=== PATIENT | male | born 1980 | race Caucasian/White ===

== ENCOUNTER 2016-06-24 20:45 | Emergency (ER) ==
[2016-06-24] MEDS ORDERED: AMOXIL PO ONE (22:19)
[2016-06-24] MEDS ORDERED: NORCO-10 PO ONE (22:20)
--- NOTE | 2016-06-24 22:21 | PROVIDER DOCUMENTATION ---
HPI-EENT General - General Stated Complaint: RT EARACHE Time Seen by Provider: 06/24/16 22:11 Source: family Allergies/Adverse Reactions: Patient Allergies Allergy/AdvReac Type Severity Reaction Status Date / Time No Known Allergies Allergy Verified 06/11/15 22:45 Home Medications: Home Medication List Medication Instructions Recorded Confirmed Last Taken Type Cyclobenzaprine [Flexeril] 10 mg PO TID #20 tablet 06/11/15 Unknown Rx Naproxen 500 mg PO BID PRN #30 tablet 06/11/15 Unknown Rx Acetaminophen with Codeine 1 each PO Q4H PRN PRN #10 tablet 06/24/16 Unknown Rx [Tylenol with Codeine #3] Amoxicillin [Amoxil] 500 mg PO BID #14 capsule 06/24/16 Unknown Rx - History of Present Illness-EENT General Nature of Presenting Problem: 36 y/o WM c/o right ear pain and right dental pain starting 3 days ago, cannot sleep due to pain. Denies fevers, chills or night sweats. States he thinks the wisdom tooth in the back that is coming in and loose and capped tooth that may be loose on the right lower jaw. Denies difficulty breathing or swallowing. Took Aleive which did not help much. Has not seen dentist in awhile. Review of Systems - Adult - REVIEW OF SYSTEMS - ADULT Constitutional: reports: no symptoms reported. denies: chills, fever, fatique Eyes: reports: no symptoms reported. denies: decreased vision, blurred vision, double vision, eye pain Ears, Nose, Mouth & Throat: reports: see HPI, ear pain, mouth/dental pain. denies: nose pain, throat swelling Cardiovascular: reports: no symptoms reported. denies: chest pain Respiratory: reports: no symptoms reported. denies: cough, shortness of breath Gastrointestinal: reports: no symptoms reported. denies: abdominal pain, nausea , vomiting Genitourinary: reports: no symptoms reported Musculoskeletal: reports: no symptoms reported. denies: bone pain, back pain, muscle aches Integumentary: reports: no symptoms reported. denies: rash Neurological: reports: no symptoms reported. denies: headache/migraines Psychiatric: reports: no symptoms reported Endocrine: reports: no symptoms reported Hematologic/Lymphatic: reports: no symptoms reported Allergic/Immunologic: reports: no symptoms reported All Other Systems: Reviewed and Negative Past History - Adult - PAST MEDICAL HISTORY-ADULT Review of Records: reports: Old Records Reviewed, Nursing Assessment Review, Medications Reviewed Major Childhood Illnesses: reports: denies history Cardiovascular: reports: denies history Respiratory: reports: denies history Gastrointestinal: reports: denies history Genitourinary: reports: denies history Musculoskeletal: reports: denies history Neurological: reports: denies history Endocrine/Immune: reports: denies history Other Conditions: reports: denies history - PRIOR SURGERIES/PROCEDURES Surgical/Procedure History: reports: reviewed, not pertinent - IMMUNIZATION STATUS Childhood Immunizations: See Nurse Assessment Flu Vaccine: See Nurse Assessment - FAMILY HISTORY Family History: reviewed, not pertinent - SOCIAL HISTORY Smoking: denies Substance Use: none/never Alcohol Use Frequency: never Physical Exam- EENT - Physical Exam EENT Initial Vital Signs Reviewed: Yes General Appearance: appears well, alert, no apparent distress Eye Exam: bilateral eye: normal inspection, PERRL, EOMI Ear Exam: bilateral ear: auricle normal, canal normal, TM normal Nasal Exam: normal inspection Throat Exam: normal mouth inspection, pharynx normal, dental tenderness Mouth,Throat: 1 - broken tooth with abscess 2 - gingivitis 3 - tongue ring Neck: non-tender, full range of motion, supple, normal inspection. negative: lymphadenopathy Respiratory: chest non-tender, lungs clear, normal breath sounds, no pleuratic chest pain, no respiratory distress, no accessory muscle use Cardiovascular: normal peripheral pulses, regular rate, rhythm Extremity: normal gait Integumentary: normal color, normal turgor, warm/dry Neurologic: grossly normal, no motor/sensory deficits Psych/Mental Status: normal mood/affect, normal thought content, normal thought process, oriented x 3 Progress - PLAN OF CARE/RESULTS Progress/Plan/Lab Results: Vital Signs Temp Pulse Resp BP Pulse Ox 06/24/16 20:56 97.6 F 69 16 150/92 99 No Known Allergies Allergy (Verified 06/11/15 22:45) Cyclobenzaprine [Flexeril] 10 mg PO TID #20 tablet 06/11/15 Naproxen 500 mg PO BID PRN #30 tablet 06/11/15 Acetaminophen with Codeine [Tylenol with Codeine #3] 1 each PO Q4H PRN PRN #10 tablet 06/24/16 Amoxicillin [Amoxil] 500 mg PO BID #14 capsule 06/24/16 Orders Category Date Time Status Amoxicillin [Amoxil] Med 06/24/16 22:19 Discontinued 400 mg PO NOW ONE Hydrocodone/APAP 10 mg/325 mg [[place]-10] Med 06/24/16 22:20 Discontinued 1 each PO NOW ONE Departure - Departure Time of Disposition Order: 22:19 DIAGNOSIS: Dental abscess Disposition: HOME 01 Certified Medical Emergency: Emergent Condition: Stable Additional Instructions: Follow up with your dentist. ED Follow Up Instructions: You have been treated by a care provider in the Emergency Department. These instructions are being provided to you so you can have an understanding of how to care for yourself upon discharge. Upon discharge from the Emergency Department, you are responsible for making arrangements for follow-up care by a physician of your choice. Take all prescribed medications as directed. Return to the Emergency Department immediately for any new or worsening symptoms. You may call the Physician Referral phone number at [phone] to obtain a list of Physicians who are taking new patients. Prescriptions: Amoxicillin [Amoxil] 500 mg PO BID #14 capsule Acetaminophen with Codeine [Tylenol with Codeine #3] 1 each PO Q4H PRN PRN #10 tablet PRN Reason: Pain Referrals: None,PCP [Primary Care Provider] - Attestation - Physician/ OLGA Attestation Patient care was provided by Advanced Practice Provider:: Yes Advanced Practice Provider:: Christina Dexter Advanced Practice Provider documentation review:: The Mid-level provider documentation, treatment plan and medical decision making was reviewed by the physician who agrees with all treatment and medical decision making by the [facility]ALTH SYSTEM.
[2016-06-24 22:48] VITALS: BP 175/96
== END 2016-06-24 22:51 | disposition home or self-care (01) ==
LOC: ED 20:45
DX: K04.7 Periapical abscess without sinus (principal); S02.5XXA Fracture of tooth (traumatic), initial encounter for closed fracture; K05.10 Chronic gingivitis, plaque induced; H92.01 Otalgia, right ear; K08.89 Other specified disorders of teeth and supporting structures